=== PATIENT | female | born 1995 | race African-American/Black ===

== ENCOUNTER 2016-11-05 11:47 | Emergency (ER) | payer MEDICAID ==
[2016-11-05] MEDS ORDERED: ONDANSETRON 4 MG TAB.RAPDIS PO ONE (12:10)
[2016-11-05] MEDS ORDERED: HYDROCODONE/ACETAMINOPHEN 5-325 MG TABLET PO ONE (12:10)
--- NOTE | 2016-11-05 12:12 | ER Document Report ---
ED Medical Screen (RME) - General Chief Complaint: Abdominal Pain Stated Complaint: ABDOMINAL PAIN Notes: 21-year-old female patient with severe abdominal pain and cramping to her lower abdomen. She reports about a two-year history of symptoms suggestive of irritable bowel syndrome. She has been put on dicyclomine without benefit. She started her period 5 days ago. She reports the symptoms returned yesterday afternoon and has been getting worse. She does feel some nausea but no vomiting or diarrhea. I have greeted and performed a rapid initial assessment of this patient. A comprehensive ED assessment and evaluation of the patient, analysis of test results and completion of the medical decision making process will be conducted by additional ED providers. TRAVEL OUTSIDE OF THE [place] IN LAST 30 DAYS: No - Related Data Allergies/Adverse Reactions: Penicillins Allergy (Mild, Verified 11/05/16 11:49) Home Medications: Current Home Medications Dicyclomine HCl 20 mg PO BID PRN 11/05/16 [History] Norgestimate-Ethinyl Estradiol [Sprintec 28 Day Tablet] 1 tab PO DAILY 11/05/16 [History] Past Medical History Neurological Medical History: Reports: Hx Migraine Renal/ Medical History: Denies: Hx Peritoneal Dialysis - Immunizations Hx Diphtheria, Pertussis, Tetanus Vaccination: Yes Physical Exam - Vital signs Vitals: Temp Pulse Resp BP Pulse Ox 97.7 F 63 14 132/78 H 98 11/05/16 11:50 11/05/16 11:50 11/05/16 11:50 11/05/16 11:50 11/05/16 11:50 Course - Vital Signs Vital signs: Temp Pulse Resp BP Pulse Ox 97.7 F 63 14 132/78 H 98 11/05/16 11:50 11/05/16 11:50 11/05/16 11:50 11/05/16 11:50 11/05/16 11:50
[2016-11-05] MEDS ORDERED: NORMAL SALINE 1000 ML 1,000 ML IV ONE ×2 (12:23)
[2016-11-05] MEDS ORDERED: ONDANSETRON HCL INJ/PF 4 MG/2 ML SDV IV ONE (12:24)
--- NOTE | 2016-11-05 12:31 | ER Document Report ---
ED GI/ - General Chief Complaint: Abdominal Pain Stated Complaint: ABDOMINAL PAIN Time seen by provider: 12:24 Mode of Arrival: Ambulatory Information source: Patient Notes: 21-year-old female presents to ED for right upper quadrant abdominal pain. She says she has had this pain off and on for 2 years ever since about a month after her son was born. She states she's been to doctors and nobody is ever figured out what was going on with her pain started again yesterday and it is worse than it has been in the past. Last menstrual period was 11/01/2016 TRAVEL OUTSIDE OF THE [place] IN LAST 30 DAYS: No - HPI Patient complains to provider of: Abdominal pain - Right upper quadrant Onset: Other - Off and on for 2 years worse starting yesterday Timing/Duration: Intermittent Quality of pain: Sharp Severity at maximum: Moderate Severity in ED: Moderate Pain Level: 4 Location: RUQ Vaginal bleeding (Compared to normal period): None LMP: 11/01/16 Associated symptoms: Nausea Exacerbated by: Denies Relieved by: Denies Similar symptoms previously: Yes Recently seen / treated by doctor: No - Related Data Allergies/Adverse Reactions: Penicillins Allergy (Mild, Verified 11/05/16 11:49) Home Medications: Current Home Medications Dicyclomine HCl 20 mg PO BID PRN 11/05/16 [History] Norgestimate-Ethinyl Estradiol [Sprintec 28 Day Tablet] 1 tab PO DAILY 11/05/16 [History] Past Medical History - General Information source: Patient - Social History Smoking Status: Never Smoker Cigarette use (# per day): No Chew tobacco use (# tins/day): No Smoking Education Provided: No Frequency of alcohol use: None Drug Abuse: None Occupation: sales Lives with: Parents Family History: DM, Hypertension Patient has suicidal ideation: No Patient has homicidal ideation: No - Past Medical History Cardiac Medical History: Reports: None Pulmonary Medical History: Reports: None EENT Medical History: Reports: None Neurological Medical History: Reports: Hx Migraine Endocrine Medical History: Reports: None Renal/ Medical History: Reports: None Malignancy Medical History: Reports: None GI Medical History: Reports: None Musculoskeltal Medical History: Reports None Skin Medical History: Reports None Psychiatric Medical History: Reports: None Traumatic Medical History: Reports: None Infectious Medical History: Reports: None Surgical Hx: Negative Past Surgical History: Reports: None - Immunizations Hx Diphtheria, Pertussis, Tetanus Vaccination: Yes Review of Systems - Review of Systems Constitutional: No symptoms reported EENT: No symptoms reported Cardiovascular: No symptoms reported Respiratory: No symptoms reported Gastrointestinal: Abdominal pain, Nausea Genitourinary: No symptoms reported Female Genitourinary: No symptoms reported Musculoskeletal: No symptoms reported Skin: No symptoms reported Hematologic/Lymphatic: No symptoms reported Neurological/Psychological: No symptoms reported Physical Exam - Vital signs Vitals: Temp Pulse Resp BP Pulse Ox 97.7 F 63 14 132/78 H 98 11/05/16 11:50 11/05/16 11:50 11/05/16 11:50 11/05/16 11:50 11/05/16 11:50 Interpretation: Normal - General General appearance: Appears well, Alert - HEENT Head: Normocephalic, Atraumatic Eyes: Normal Pupils: PERRL - Respiratory Respiratory status: No respiratory distress Chest status: Nontender Breath sounds: Normal Chest palpation: Normal - Cardiovascular Rhythm: Regular Heart sounds: Normal auscultation Murmur: No - Abdominal Inspection: Normal Distension: No distension Bowel sounds: Normal Tenderness: Tender - Right upper quadrant Organomegaly: No organomegaly - Back Back: Normal, Nontender - Extremities General upper extremity: Normal inspection, Nontender, Normal color, Normal ROM , Normal temperature General lower extremity: Normal inspection, Nontender, Normal color, Normal ROM , Normal temperature, Normal weight bearing. No: Mary's sign - Neurological Neuro grossly intact: Yes Cognition: Normal Orientation: AAOx4 Farhan Coma Scale Eye Opening: Spontaneous Farhan Coma Scale Verbal: Oriented Farhan Coma Scale Motor: Obeys Commands Farhan Coma Scale Total: 15 Speech: Normal Motor strength normal: LUE, RUE, LLE, RLE Sensory: Normal - Psychological Associated symptoms: Normal affect, Normal mood - Skin Skin Temperature: Warm Skin Moisture: Dry Skin Color: Normal Course - Re-evaluation Re-evalutation: 11/05/16 18:[address] Mcgovern requested an order an ultrasound of the abdomen this was completed and negative. Patient had started complaining that the pain in her right upper abdomen increased with urination so a CT Limited stone survey was ordered and this was also negative. Labs were negative. These results were all discussed with the patient and written reports given to the patient. Patient instructed to please follow-up with Dr. Hardy by telephone on Tuesday and schedule a follow-up visit. - Vital Signs Vital signs: Temp Pulse Resp BP Pulse Ox 97.7 F 63 14 132/78 H 98 11/05/16 11:50 11/05/16 11:50 11/05/16 11:50 11/05/16 11:50 11/05/16 11:50 - Laboratory Result Diagrams: 11/05/16 12:30 11/05/16 14:08 Laboratory results interpreted by me: 11/05/16 11/05/16 12:30 13:15 MCH 26.8 L RDW 14.3 H Urine Blood LARGE H - Diagnostic Test Radiology reviewed: Image reviewed, Reports reviewed Discharge - Discharge Clinical Impression: Abdominal pain, right upper quadrant Condition: Stable Disposition: HOME, SELF-CARE Instructions: Evaluation of Upper Abdominal Pain ([facility]) Additional Instructions: ABDOMINAL PAIN: There are many causes of abdominal pain. Pain can mean a serious problem requiring surgery (such as appendicitis). It can also be an innocent problem that goes away on its own (such as a viral infection). Often, time must pass to determine the cause of pain. The physician does not feel that hospitalization is necessary, at present. Things may change within the next 24 hours. Call the doctor or come back for re- examination if any problems occur, such as: (1) Pain that becomes more severe, steady, or becomes concentrated in one specific area. Also, pain that is more severe with movement or coughing. (2) Vomiting that persists or becomes more frequent. (3) Blood in the vomitus, urine, or bowel movements. Blood in the stool may have a tarry or black appearance. (4) Shaking chills or fever greater than 100 degrees F. (5) The abdomen becomes more distended or swollen. (6) Bowel movements cease. (7) Failure to improve as expected. NORMAL EXAM AND WORKUP: At this time, your examination and workup show no significant abnormality. No significant abnormal physical findings are noted. All laboratory, EKG, and imaging (x-ray, CT scans, ultrasound) studies that were ordered show no significant abnormality. Although your examination and all studies that were ordered showed no significant abnormal finding, there are no examinations and no studies that are 100% accurate. There is always the possibility that some abnormality could exist and not be detected with physical examination or within the limits and capabilities of laboratory and other studies. You should return or follow up as you were instructed on your visit today for further evaluation if your symptoms do not resolve. PAIN MEDICATION INJECTION: You have received an injection of a pain medication. You should experience significant pain relief within 45 minutes. This drug is a narcotic - - it will impair your judgement, slow your reaction time and make you sleepy ( as well as relieve your pain). Narcotics also can cause nausea. You should not drive, work with machinery, or perform any task requiring mental alertness until all effects of the medication are gone -- six to eight hours. Do not take any alcohol, or sedatives, and do not take any other medication without checking with your physician. ANTINAUSEA MEDICATION: You have been given a medication to suppress nausea and vomiting. This type of medication can be given as a shot, pill, or suppository. It will usually last for many hours. Pills and shots usually last six to eight hours, suppositories last about 12 hours. For the typical illness, only one or two doses of the medication may be necessary. Mild lightheadedness may occur. This type of medicine can cause drowsiness. Do not drive or operate dangerous machinery while under its influence. Do not mix with alcohol. See your doctor at once if you have muscle spasms or tightness, or uncontrollable motions (particularly of the neck, mouth, or jaw). Persistent vomiting or severe lightheadedness should also be evaluated by the physician. FOLLOW-UP CARE: Please call Dr. Hardy on Tuesday and schedule a follow-up appointment. If you have been referred to a physician for follow-up care, call the physician s office for an appointment as you were instructed or within the next two days. If you experience worsening or a significant change in your symptoms, notify the physician immediately or return to the Emergency Department at any time for re-evaluation. Please complete the patient's satisfaction survey if you get one and return. If you do not receive a survey you can go to [facility] website [email or web address] and place your comments about your very good care. Thank you very much. It was a pleasure be in your medical provider today. Forms: Elevated Blood Pressure, Return to Work Referrals: YANNA HARDY MD [ACTIVE STAFF] - 11/08/16
[2016-11-05 13:01] LABS: ABSOLUTE EOSINOPHILS # (AUTO) 0.3 10^3/uL (0.0-0.6); ABSOLUTE LYMPHOCYTES (AUTO) 1.1 10^3/uL (0.5-4.7); ABSOLUTE MONOCYTES (AUTO) 0.6 10^3/uL (0.1-1.4); ABSOLUTE NEUT (AUTO) 4.2 10^3/uL (1.7-8.2); BASOPHILS % (AUTO) 0.2 % (0-2); EOSINOPHILS % (AUTO) 4.1 % (0-6); HEMOGLOBIN 13.6 g/dL (12.0-15.5); HGB HCT DIFFERENCE -0.2; LYMPHOCYTES % (AUTO) 18.1 % (13-45); MEAN CORPUSCULAR HEMOGLOBIN 26.8 pg (27.0-33.4); MEAN CORPUSCULAR HGB CONC 33.2 g/dL (32.0-36.0); MEAN CORPUSCULAR VOLUME 81 fl (80-97); MONOCYTES % (AUTO) 9.4 % (3-13); RED BLOOD COUNT 5.09 10^6/uL (3.72-5.28); RED CELL DISTRIBUTION WIDTH 14.3 % (11.5-14.0); SEGMENTED NEUTROPHILS % (AUTO) 68.2 % (42-78); WHITE BLOOD COUNT 6.2 10^3/uL (4.0-10.5)
[2016-11-05 13:33] LABS: APPEARANCE,URINE CLEAR; BILIRUBIN,URINE NEGATIVE (NEGATIVE); GLUCOSE, URINE NEGATIVE (NEGATIVE); KETONES,URINE NEGATIVE (NEGATIVE); LEUKOCYTE ESTERASE,URINE NEGATIVE (NEGATIVE); NITRITE,URINE NEGATIVE (NEGATIVE); PROTEIN,URINE NEGATIVE (NEGATIVE); UROBILINOGEN,URINE NEGATIVE mg/dL (<2.0)
[2016-11-05 14:44] LABS: ALANINE AMINOTRANSFERASE 20 U/L (9-52); ALBUMIN 3.9 g/dL (3.5-5.0); ALKALINE PHOSPHATASE 79 U/L (38-126); ANION GAP 12 (5-19); ASPARTATE AMINO TRANSFERASE 22 U/L (14-36); BILIRUBIN,DIRECT 0.1 mg/dL (0.0-0.4); BILIRUBIN,TOTAL 0.5 mg/dL (0.2-1.3); BLOOD UREA NITROGEN 7 mg/dL (7-20); CALCIUM 9.5 mg/dL (8.4-10.2); CARBON DIOXIDE 26 mmol/L (22-30); CHLORIDE 103 mmol/L (98-107); CREATININE RESULT 0.57 mg/dL (0.52-1.25); GLUCOSE 84 mg/dL (75-110); POTASSIUM 4.5 mmol/L (3.6-5.0); SODIUM 141.2 mmol/L (137-145); TOTAL PROTEIN 7.5 g/dL (6.3-8.2)
[2016-11-05 19:00] VITALS: BP 116/72
== END 2016-11-05 19:00 | disposition home or self-care (01) ==
LOC: ER 11:47
DX: R10.11 Right upper quadrant pain (principal); R11.0 Nausea; Z88.0 Allergy status to penicillin
CPT/HCPCS: 99284; 96361; 96374; 36415; 83690; 84703; 85025; 80053; 81001; 76705; 76380; J2405; J7030

== ENCOUNTER 2017-12-11 10:21 | Emergency (ER) | payer SELFPAY ==
[2017-12-11 10:26] VITALS: BP 132/71
--- NOTE | 2017-12-11 10:31 | ER Document Report ---
HPI - HPI Patient complains to provider of: Sore throat Onset: Other - 2 days Pain Level: 4 Context: 22-year-old female complaining of a sore throat and losing voice for 2 days. She has had a cough for several days and now she is ear pain as well. No fever chills. No chest pain or shortness of breath. Non-smoker. No history of asthma. 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 IN LAST 30 DAYS: No - HEENT HEENT: Normocephalic, Pharyngeal Erythema - Minimal bilateral pillars, Tympanic Membrane Red - Right, Tympanic Membrane Bulging - Right, purulent effusion. negative: Conjuctival Injection - NECK Neck: Supple. negative: Lymphadenopathy-Left, Lymphadenopathy-Right - RESPIRATORY Respiratory: Breath Sounds Normal, No Respiratory Distress - CARDIOVASCULAR Cardiovascular: Regular Rate, Regular Rhythm - NEURO Level of Consciousness: Awake, Alert - DERM Integumentary: No Rash Course - Vital Signs Vital signs: Temp Pulse Resp BP Pulse Ox 98.7 F 84 16 132/71 H 97 12/11/17 10:24 12/11/17 10:24 12/11/17 10:24 12/11/17 10:24 12/11/17 10:24 Discharge - Discharge Clinical Impression: Laryngitis Right otitis media Qualifiers: Otitis media type: suppurative Chronicity: acute Recurrence: not specified as recurrent Spontaneous tympanic membrane rupture: without spontaneous rupture Qualified Code(s): H66.001 - Acute suppurative otitis media without spontaneous rupture of ear drum, right ear Condition: Good Disposition: HOME, SELF-CARE Instructions: Acetaminophen, Azithromycin ([facility]), Use of Xmpo-Per-Juvgsdu Ibuprofen ([facility]), Ibuprofen (General) ([facility]), Laryngitis ([facility]), Otitis Media ([facility]) Additional Instructions: Plenty of fluids Tylenol Motrin azithromycin Return if symptoms worsen Follow-up with Dr. Bonilla for ear recheck this month Prescriptions: Azithromycin [Zithromax] 250 mg PO DAILY #6 tablet Forms: Return to Work Referrals: YANNA HARDY MD [Primary Care Provider] - Follow up in 1 month
== END 2017-12-11 10:42 | disposition home or self-care (01) ==
LOC: ER 10:21
DX: J04.0 Acute laryngitis (principal); J02.9 Acute pharyngitis, unspecified; H66.001 Acute suppurative otitis media without spontaneous rupture of ear drum, right ear; R05 Cough; H92.09 Otalgia, unspecified ear
CPT/HCPCS: 99282

== ENCOUNTER 2018-01-06 07:48 | Emergency (ER) | payer SELFPAY ==
[2018-01-06 07:53] VITALS: BP 118/66
--- NOTE | 2018-01-06 08:20 | ER Document Report ---
ED Eye Complaint - General Mode of Arrival: Ambulatory Information source: Patient TRAVEL OUTSIDE OF THE [place] IN LAST 30 DAYS: No - General Chief Complaint: Eye Problem Stated Complaint: RIGHT EYE PAIN Time Seen by Provider: 01/06/18 08:06 Notes: Patient is a 22-year-old female who presents to the emergency department today with complaints of "possible pink eye". Patient states she has had this shortness for approximately 2 weeks and she thought it was her contacts so she stopped wearing those a week ago. Patient is currently wearing eyeglasses and has for the last week. Patient denies having any foreign body in her eye. Patient denies any pain. (ENRIQUE DALEY) - Related Data Allergies/Adverse Reactions: Penicillins Allergy (Mild, Verified 11/05/16 11:49) shellfish derived Allergy (Verified 12/11/17 10:22) Past Medical History - General Information source: Patient - Social History Smoking Status: Never Smoker Cigarette use (# per day): No Frequency of alcohol use: None Drug Abuse: None Lives with: Family Family History: Reviewed & Not Pertinent, DM, Hypertension Neurological Medical History: Reports: Hx Migraine Surgical Hx: Negative - Immunizations Hx Diphtheria, Pertussis, Tetanus Vaccination: Yes Review of Systems - Review of Systems Constitutional: No symptoms reported EENT: See HPI, Eye pain - right Cardiovascular: No symptoms reported Respiratory: No symptoms reported Gastrointestinal: No symptoms reported Genitourinary: No symptoms reported Female Genitourinary: No symptoms reported Musculoskeletal: No symptoms reported Skin: No symptoms reported Hematologic/Lymphatic: No symptoms reported Neurological/Psychological: No symptoms reported -: Yes All other systems reviewed and negative Physical Exam - Vital signs Vitals: Temp Pulse Resp BP Pulse Ox 98.7 F 82 18 118/66 100 01/06/18 07:52 01/06/18 07:52 01/06/18 07:52 01/06/18 07:52 01/06/18 07:52 - Notes Notes: Physical Exam: General: Alert, appears well. HEENT: Normocephalic. Atraumatic. PERRLA. Extraocular movements intact. Right conjunctiva is injected, with perilimbal sparing. Oropharynx clear. Neck: Supple. Respiratory: No respiratory distress. Abdominal: Normal Inspection. No distension. Extremities: Moves all four extremities. Neurological: Normal cognition. AAOx4. Normal speech. Psychological: Normal affect. Normal Mood. Skin: Warm. Dry. Normal color. (ENRIQUE DALEY) Course - Re-evaluation Re-evalutation: 01/06/18 08:23 Patient symptoms suggestive with conjunctivitis. She has been having discharge worse in the morning but denies any eye pain or vision problems. She denies any foreign bodies. She has not worn her contacts in 1 week. Will provide fluoroquinolone drops and reevaluation within the next 3-5 days if symptoms are not improving (LONG,LOUISE H) - Vital Signs Vital signs: Temp Pulse Resp BP Pulse Ox 98.7 F 82 18 118/66 100 01/06/18 07:52 01/06/18 07:52 01/06/18 07:52 01/06/18 07:52 01/06/18 07:52 Discharge - Discharge Clinical Impression: Conjunctivitis Qualifiers: Conjunctivitis type: acute Acute conjunctivitis type: unspecified Laterality: right Qualified Code(s): H10.31 - Unspecified acute conjunctivitis, right eye Condition: Good Disposition: HOME, SELF-CARE Instructions: Conjunctivitis ([facility]) Additional Instructions: 1-2 drops every 2 hours while awake for 2 days then 1-2 drops every 4 hours for 6 days Forms: Return to Work Referrals: YANNA HARDY MD [Primary Care Provider] - Follow up in 3-5 days (For re- evaluation if symptoms are not improving) Scribe Documentation - Scribe Written by Scribe:: Tammy Rodriguez, 01/06/2018 1233 acting as scribe for :: Jose Enrique
[2018-01-06] MEDS ORDERED: CIPROFLOXACIN HCL 0.3% OPH SOLN 2.5 ML OD ONE (08:29)
== END 2018-01-06 08:43 | disposition home or self-care (01) ==
LOC: ER 07:48
DX: H10.31 Unspecified acute conjunctivitis, right eye (principal); H57.11 Ocular pain, right eye; Z88.0 Allergy status to penicillin; Z91.013 Allergy to seafood
CPT/HCPCS: 99283; J3490

== ENCOUNTER 2018-01-19 10:17 | Emergency (ER) | payer SELFPAY ==
[2018-01-19] MEDS ORDERED: IBUPROFEN 800 MG TABLET PO ONE (10:54)
--- NOTE | 2018-01-19 10:55 | ER Document Report ---
ED Extremity Problem, Lower - General Chief Complaint: Foot Pain Stated Complaint: FOOT PAIN Time Seen by Provider: 01/19/18 10:53 Mode of Arrival: Ambulatory Information source: Patient Notes: 22-year-old female presents to ED for pain in her right foot and ankle. She states that while horsing around with her son at the [employer] she also had a very sharp pain in the ankle and her ankle gave out. She has then injured her ankle and her foot. There is no redness swelling or bruising to the ankle at this time. Patient is alert and oriented respirations regular and unlabored speaking in full sentences. We will medicate the patient with ibuprofen and send her for an x-ray to ensure there are no bone bony deformities. Patient agrees with this plan. TRAVEL OUTSIDE OF THE [place] IN LAST 30 DAYS: No - HPI Patient complains to provider of: Injury, Pain, Swelling Location: Ankle, Foot Occurred: Yesterday Where: Outdoors, Public place Onset/Duration: Gradual, Persistent, Worse Quality of pain: Sharp, Throbbing Severity: Moderate Pain Level: 4 Context: Twisted - Or rolled Recent injury: Yes Associated symptoms: Painful ambulation Exacerbated by: Hanging down, Movement, Walking Relieved by: Elevation, Ice, Rest - Related Data Allergies/Adverse Reactions: Penicillins Allergy (Mild, Verified 01/19/18 10:31) shellfish derived Allergy (Verified 01/19/18 10:31) Past Medical History - General Information source: Patient - Social History Smoking Status: Never Smoker Cigarette use (# per day): No Chew tobacco use (# tins/day): No Smoking Education Provided: No Frequency of alcohol use: None Drug Abuse: None Occupation: [employer] Lives with: Parents Family History: Reviewed & Not Pertinent, DM, Hypertension Patient has suicidal ideation: No Patient has homicidal ideation: No - Past Medical History Cardiac Medical History: Reports: None Pulmonary Medical History: Reports: None EENT Medical History: Reports: None Neurological Medical History: Reports: Hx Migraine Endocrine Medical History: Reports: None Renal/ Medical History: Reports: None Malignancy Medical History: Reports: None GI Medical History: Reports: None Musculoskeltal Medical History: Reports None Skin Medical History: Reports None Psychiatric Medical History: Reports: None Traumatic Medical History: Reports: None Infectious Medical History: Reports: None Surgical Hx: Negative Past Surgical History: Reports: None - Immunizations Hx Diphtheria, Pertussis, Tetanus Vaccination: Yes Review of Systems - Review of Systems Constitutional: No symptoms reported EENT: No symptoms reported Cardiovascular: No symptoms reported Respiratory: No symptoms reported Gastrointestinal: No symptoms reported Genitourinary: No symptoms reported Female Genitourinary: No symptoms reported Musculoskeletal: Ankle swelling Skin: No symptoms reported Hematologic/Lymphatic: No symptoms reported Neurological/Psychological: No symptoms reported Physical Exam - Vital signs Vitals: Temp Pulse Resp BP Pulse Ox 98.7 F 79 16 121/69 98 01/19/18 10:32 01/19/18 10:32 01/19/18 10:32 01/19/18 10:32 01/19/18 10:32 Interpretation: Normal - General General appearance: Appears well, Alert - HEENT Head: Normocephalic, Atraumatic Eyes: Normal Pupils: PERRL - Respiratory Respiratory status: No respiratory distress Chest status: Nontender Breath sounds: Normal Chest palpation: Normal - Cardiovascular Rhythm: Regular Heart sounds: Normal auscultation Murmur: No - Abdominal Inspection: Normal Distension: No distension Bowel sounds: Normal Tenderness: Nontender Organomegaly: No organomegaly - Back Back: Normal, Nontender - Extremities General upper extremity: Normal inspection, Nontender, Normal color, Normal ROM , Normal temperature General lower extremity: Normal color, Normal temperature. No: Mary's sign Ankle: Tender, Ecchymosis - Due to pain, Limited ROM Foot: Tender, Ecchymosis, Edema, Metatarsal compress. pain, No evidence of FB - Neurological Neuro grossly intact: Yes Cognition: Normal Orientation: AAOx4 [place] Coma Scale Eye Opening: Spontaneous Farhan Coma Scale Verbal: Oriented Farhan Coma Scale Motor: Obeys Commands Farhan Coma Scale Total: 15 Speech: Normal Motor strength normal: LUE, RUE, LLE, RLE Sensory: Normal - Psychological Associated symptoms: Normal affect, Normal mood - Skin Skin Temperature: Warm Skin Moisture: Dry Skin Color: Normal Course - Re-evaluation Re-evalutation: 01/19/18 21:44 X-ray was discussed with patient and written report was given to patient before discharge. Patient was instructed on elevation ice ibuprofen. Patient to follow-up with orthopedics. The patient is nontoxic appearing with stable vitals. They are afebrile. Ankle exam shows no deformities with no obvious ligament instability. There is a normal pulse and sensation distally. There is no redness or signs of infection. X-rays show no acute fracture per the radiologist. Patient will be placed in an Sarmad wrap for comfort. Crutches will be offered and given if requested. Patient will be instructed to follow-up with not better in 1 week, sooner for increasing pain, fever, redness, numbness , tingling, weakness, any further concerns. Patient will be instructed to rest , ice, elevate their ankle. - Vital Signs Vital signs: Temp Pulse Resp BP Pulse Ox 98.1 F 79 16 114/82 99 01/19/18 14:04 01/19/18 14:04 01/19/18 10:32 01/19/18 14:04 01/19/18 14:04 - Diagnostic Test Radiology reviewed: Image reviewed, Reports reviewed Procedures - Immobilization Right Ankle Time completed: 14:00 Immobilizer type: Sarmad wrap, Ankle stirrup, Crutches Performed by: PCT Post-Proc Neuro Vasc Exam: Normal Alignment checked and good: Yes Discharge - Discharge Clinical Impression: Strain of right ankle and foot Qualifiers: Encounter type: initial encounter Qualified Code(s): S96.911A - Strain of unspecified muscle and tendon at ankle and foot level, right foot, initial encounter Condition: Stable Disposition: HOME, SELF-CARE Additional Instructions: SPRAINED ANKLE and foot Your sprained ankle results from stretching or tearing of the ligaments which support the ankle. This usually results from twisting the foot inward and under. The ligaments will require time and protection in order to heal properly. Many ankle sprains are quite disabling, and should be taken seriously. The usual treatment for an ankle sprain is cold packs; protection with tape , splints, or wraps; elevation; and staying off the ankle for at least a day. As the ankle improves, you can walk IF it's not painful to bear weight. Sports are best postponed until healing is complete. More serious sprains usually require strengthening exercises after early healing. Your physician has assessed the seriousness of the ligament injury to your ankle. However, the treatment may change, depending on how your ankle progresses. If further exams were recommended, it is important that you follow through. Call the doctor if your foot becomes numb, painful, or severely swollen. SARMAD WRAP: A compression dressing (sarmad wrap) has been placed. This helps hold the area still. It limits swelling and internal bleeding. The wrap should be comfortably snug -- not tight. You should feel a sense of pressure, but not severe pain under the wrap. Unless the physician tells you otherwise, you can adjust the wrap for comfort. If the wrap causes symptoms suggesting it's too tight -- uncomfortable pressure, swelling or discoloration beyond the wrap, numbness, or severe pain - - you must loosen the wrap. If these symptoms don't resolve promptly, return for re-evaluation. ANKLE STIRRUP SPLINT: You are to use an ankle brace called a stirrup splint. This type of brace allows you to place greater stresses on the ankle without risk of re-injury, and is often used for more severe ankle injuries such as avulsion fractures and ligament ruptures. The splint can be worn over a sock or tape. For proper support, wear the splint with a shoe over it. It's important that the splint fit properly. Adjust the heel tension, if needed. If your splint has air bladders, peel back the bottom of each air bladder, then move the Velcro attachment of the heel strap up or down. Air bladder pressure can be adjusted by pulling up the valve at the top, threading the air tube down into the main bladder, then blowing air into the bladder or squeezing it out. The two sides of the stirrup can be moved forward or back on your ankle by changing the attachment of the main straps. If you are unable to use the ankle comfortably in the splint, return for re -evaluation. USE OF CRUTCHES: The doctor has recommended that you not bear weight at this time. You will need to use crutches. Adjust the crutches so the tops come to about two inches under the armpit while you are standing upright. Use your hands -- not your armpits -- to support your weight. To get into a chair, support yourself with one crutch on the injured side. Hold the chair with the other hand, then lower yourself while putting all your weight on the good leg. Going up stairs is `good leg up, step up, then bring up crutches and bad leg.' Down stairs is `bad leg and crutches down, then bring good leg down.' If you develop numbness or swelling in an arm or hand, you are using the crutches incorrectly. Return if you are having any problems with the crutches. ICE & ELEVATION: Apply ice packs frequently against the painful area. Many different schedules are recommended, such as "20 minutes on, 20 minutes off" or "one hour ice, two hours rest." If you need to work, you may need to go longer between ice treatments. You should plan to have the area ice packed AT LEAST one- fourth of the time. The ice should be applied over the wrap, tape, or splint, or over a layer of cloth -- not directly against the skin. Some ice bags have a built-in cloth and can be put directly on the skin. Your injured part should be elevated as much as possible over the next 48 hours. Try to keep the injury above the level of the heart. Avoid use of the injured area. Elevation and rest will decrease the swelling. USE OF FLIX-XIR-KJFCEHE IBUPROFEN: Ibuprofen (Advil, Nuprin, Medipren, Motrin IB) is a medication for fever and pain control. In addition, it has anti- inflammatory effects which may be beneficial, especially in the treatment of injuries. It's best to take ibuprofen with food. Persons with ulcer disease or allergy to aspirin should notify their physician of this before taking ibuprofen. Ibuprofen can be given every four to six hours, for a total of four doses daily. Age Pain or fever dose Antiinflammatory dose 6-8 yr 200 mg (1 tab) 200 mg (1 tab) 9-11 yr 200 mg (1 tab) 200-400 mg (1-2 tab) 11-14 yr 200-400 mg (1-2 tab) 400 mg (2 tab) 15-adult 400 mg (2 tab) 600 mg (3 tab) FOLLOW-UP CARE: If you have been referred to a physician for follow-up care, call the physician s office for an appointment as you were instructed or within the next two days. If you experience worsening or a significant change in your symptoms, notify the physician immediately or return to the Emergency Department at any time for re-evaluation. Prescriptions: Ibuprofen 600 mg PO Q6HP PRN #20 tablet PRN Reason: Forms: Return to Work Referrals: MOZIE,YANNA, MD [Primary Care Provider] - Follow up as needed RICHARD BAUMANN MD [ACTIVE STAFF] - Follow up as needed
--- NOTE | 2018-01-19 11:51 | RADIOLOGY REPORT (SQ) ---
EXAM DESCRIPTION: ANKLE RIGHT COMPLETE; FOOT RIGHT COMPLETE COMPLETED DATE/TIME: 01/19/2018 11:23 am; 01/19/2018 11:24 am REASON FOR STUDY: pain and injury COMPARISON: None. NUMBER OF VIEWS: Six views. TECHNIQUE: AP, lateral, and oblique radiographic images acquired of the right ankle with AP, lateral oblique images of the right foot. LIMITATIONS: None. FINDINGS: MINERALIZATION: Normal. BONES: No acute fracture or dislocation. No worrisome bone lesions. Minimal calcaneal spurring at t he insertion of the Achilles. JOINTS: No effusions. SOFT TISSUES: No soft tissue swelling. No foreign body. OTHER: No other significant finding. IMPRESSION: No radiographic evidence of acute injury involving the right foot or right ankle. TECHNICAL DOCUMENTATION: JOB ID: [id number] [employer]- All Rights Reserved Reading location - IP/workstation name: [email or web address]
--- NOTE | 2018-01-19 11:51 | RADIOLOGY REPORT (SQ) ---
EXAM DESCRIPTION: ANKLE RIGHT COMPLETE; FOOT RIGHT COMPLETE COMPLETED DATE/TIME: 01/19/2018 11:23 am; 01/19/2018 11:24 am REASON FOR STUDY: pain and injury COMPARISON: None. NUMBER OF VIEWS: Six views. TECHNIQUE: AP, lateral, and oblique radiographic images acquired of the right ankle with AP, lateral oblique images of the right foot. LIMITATIONS: None. FINDINGS: MINERALIZATION: Normal. BONES: No acute fracture or dislocation. No worrisome bone lesions. Minimal calcaneal spurring at t he insertion of the Achilles. JOINTS: No effusions. SOFT TISSUES: No soft tissue swelling. No foreign body. OTHER: No other significant finding. IMPRESSION: No radiographic evidence of acute injury involving the right foot or right ankle. TECHNICAL DOCUMENTATION: JOB ID: [id number] [employer]- All Rights Reserved Reading location - IP/workstation name: [email or web address]
[2018-01-19 14:12] VITALS: BP 114/82
== END 2018-01-19 14:12 | disposition home or self-care (01) ==
LOC: ER 10:17
DX: S96.911A Strain of unspecified muscle and tendon at ankle and foot level, right foot, initial encounter (principal); M79.671 Pain in right foot; M25.571 Pain in right ankle and joints of right foot; M79.89 Other specified soft tissue disorders; X58.XXXA Exposure to other specified factors, initial encounter; Y93.83 Activity, rough housing and horseplay
CPT/HCPCS: 99283; 73610; 73630; L1902

== ENCOUNTER 2018-09-03 13:43 | Emergency (ER) | payer SELFPAY ==
[2018-09-03] MEDS ORDERED: LOPERAMIDE HCL 2 MG CAPSULE PO ONE (15:01)
--- NOTE | 2018-09-03 15:34 | ER Document Report ---
Entered by JACLYN DANIELS SCRIBE 09/03/18 1511 Acting as scribe for:JOSE MARTIN DO ED Medical Screen (RME) - General Chief Complaint: Diarrhea Stated Complaint: FEVER Time Seen by Provider: 09/03/18 14:54 Primary Care Provider: HEALTH,EMPLOYEE [Primary Care Provider] - Follow up as needed Mode of Arrival: Ambulatory Information source: Patient Notes: Patient is a 23 year old female presenting to the emergency department complaining of diarrhea, nausea and dizziness onset 3 days ago. Patient states she has hemorrhoids and her diarrhea is causing pain and rectal bleeding. She states she notices blood on the toilet paper after having a bowel movement. She also states due to the diarrhea she has been feeling weak and dizzy. She me ntions a fever of 101.0 yesterday. She denies any antibiotic use or change in hemorrhoids. She reports working in a [employer]. I have greeted and performed a rapid initial assessment of this patient. A comprehensive ED assessment and evaluation of the patient, analysis of test results and completion of the medical decision making process will be conducted by additional ED providers. GENERAL: Alert, interacts well. No acute distress. HEAD: Normocephalic, Atraumatic. EYES: Pupils equal, round, and reactive to light. EOMI. ENT: Oral mucosa moist, tongue midline. NECK: Full range of motion. Supple. Trachea midline. LUNGS: Clear to auscultation bilaterally, no wheezes, rales, or rhonchi. No respiratory distress. HEART: Regular rate and rhythm. No murmurs, gallops, or rubs. ABDOMEN: Soft, mild RLQ tenderness to palpation, no guarding, rebounding or rigidity. Non-distended. Bowel sounds present in all 4 quadrants. EXTREMITIES: Moves all four extremities spontaneously. PSYCH: Normal affect, normal mood. TRAVEL OUTSIDE OF THE [place] IN LAST 30 DAYS: No - Related Data Allergies/Adverse Reactions: Penicillins Allergy (Mild, Verified 09/03/18 14:54) shellfish derived Allergy (Verified 09/03/18 14:54) Past Medical History Neurological Medical History: Reports: Hx Migraine Renal/ Medical History: Denies: Hx Peritoneal Dialysis - Immunizations Hx Diphtheria, Pertussis, Tetanus Vaccination: Yes Physical Exam - Vital signs Vitals: Temp Pulse Resp BP Pulse Ox 99.0 F 81 16 127/73 H 98 09/03/18 14:00 09/03/18 14:00 09/03/18 14:00 09/03/18 14:00 09/03/18 14:00 Course - Re-evaluation Re-evalutation: 09/03/18 15:33 Given right lower quadrant abdominal pain and fevers recommend sending to [facility] in the emergency department rather than keeping in [facility] for good abdominal exam. - Vital Signs Vital signs: Temp Pulse Resp BP Pulse Ox 99.0 F 81 16 127/73 H 98 09/03/18 14:00 09/03/18 14:00 09/03/18 14:00 09/03/18 14:00 09/03/18 14:00 Doctor's Discharge - Discharge Referrals: HEALTH,EMPLOYEE [Primary Care Provider] - Follow up as needed I personally performed the services described in the documentation, reviewed and edited the documentation which was dictated to the scribe in my presence, and it accurately records my words and actions.
[2018-09-03 16:45] LABS: ABSOLUTE EOSINOPHILS # (AUTO) 0.1 10^3/uL (0.0-0.6); ABSOLUTE LYMPHOCYTES (AUTO) 1.3 10^3/uL (0.5-4.7); ABSOLUTE MONOCYTES (AUTO) 0.7 10^3/uL (0.1-1.4); ABSOLUTE NEUT (AUTO) 5.5 10^3/uL (1.7-8.2); BASOPHILS % (AUTO) 0.2 % (0-2); EOSINOPHILS % (AUTO) 1.8 % (0-6); HEMATOCRIT 38.9 % (36.0-47.0); HEMOGLOBIN 13.2 g/dL (12.0-15.5); LYMPHOCYTES % (AUTO) 16.4 % (13-45); MEAN CORPUSCULAR HEMOGLOBIN 27.1 pg (27.0-33.4); MEAN CORPUSCULAR HGB CONC 33.9 g/dL (32.0-36.0); MEAN CORPUSCULAR VOLUME 80 fl (80-97); MONOCYTES % (AUTO) 9.4 % (3-13); PLATELET COUNT 269 10^3/uL (150-450); RED BLOOD COUNT 4.87 10^6/uL (3.72-5.28); RED CELL DISTRIBUTION WIDTH 14.7 % (11.5-14.0); SEGMENTED NEUTROPHILS % (AUTO) 72.2 % (42-78); TOTAL CELLS COUNTED % (AUTO) 100 %; WHITE BLOOD COUNT 7.6 10^3/uL (4.0-10.5)
[2018-09-03 17:01] LABS: ALANINE AMINOTRANSFERASE 12 U/L (9-52); ALBUMIN 4.1 g/dL (3.5-5.0); ALKALINE PHOSPHATASE 88 U/L (38-126); ANION GAP 10 (5-19); ASPARTATE AMINO TRANSFERASE 23 U/L (14-36); BILIRUBIN,DIRECT 0.2 mg/dL (0.0-0.4); BILIRUBIN,TOTAL 0.2 mg/dL (0.2-1.3); BLOOD UREA NITROGEN 7 mg/dL (7-20); CALCIUM 9.5 mg/dL (8.4-10.2); CARBON DIOXIDE 27 mmol/L (22-30); CHLORIDE 104 mmol/L (98-107); GLUCOSE 82 mg/dL (75-110); POTASSIUM 4.2 mmol/L (3.6-5.0); SODIUM 141.2 mmol/L (137-145); TOTAL PROTEIN 7.5 g/dL (6.3-8.2)
[2018-09-03 17:02] LABS: APPEARANCE,URINE CLOUDY; BILIRUBIN,URINE NEGATIVE (NEGATIVE); COLOR,URINE YELLOW; GLUCOSE, URINE NEGATIVE (NEGATIVE); KETONES,URINE NEGATIVE (NEGATIVE); LEUKOCYTE ESTERASE,URINE TRACE (NEGATIVE); NITRITE,URINE NEGATIVE (NEGATIVE); PROTEIN,URINE NEGATIVE (NEGATIVE); URINE SPECIFIC GRAVITY 1.019; UROBILINOGEN,URINE NEGATIVE mg/dL (<2.0)
[2018-09-03 17:07] LABS: A TYPE INFLUENZA AG NEGATIVE (NEGATIVE); B INFLUENZA AG NEGATIVE (NEGATIVE)
[2018-09-03] MEDS ORDERED: MORPHINE SULFATE 10 MG/ML INJ IV ONE (17:14)
[2018-09-03 18:14] LABS: T.VAGINALIS (WET MOUNT) NO TRICHOMONAS SEEN; YEAST (WET MOUNT) NO YEAST SEEN
[2018-09-03 18:15] LABS: BACTERIA (WET MOUNT) 3+ BACTERIA SEEN; EPITHELIALS (WET MOUNT) 3+ EPITHELIALS SEEN; RBCS (WET MOUNT) FEW RBCS SEEN; WBCS (WET MOUNT) 2+ WBCS SEEN
--- NOTE | 2018-09-03 18:19 | ER Document Report ---
ED General - General Chief Complaint: Diarrhea Stated Complaint: FEVER Time Seen by Provider: 09/03/18 14:54 Primary Care Provider: HEALTH,EMPLOYEE [ACTIVE STAFF] - Follow up as needed Mode of Arrival: Ambulatory Notes: Patient is a 23-year old female who presents to the emergency department with a chief complaint of diarrhea, nausea, and dizziness that started 3 days ago. Patient states that she has been feeling weak and dizzy. She does have some abdominal pain in her right lower quadrant. Walking does aggravate the pain. She has not tried anything to help her pain. She has a history of hemorrhoids, and states that she noticed some blood on the toilet paper after she wiped. Rep orts fever on and off the past day. She has not seen her primary care provider in regards to this visit. She denies any abdominal surgeries. Her last menstrual cycle was 2 weeks ago. TRAVEL OUTSIDE OF THE [place] IN LAST 30 DAYS: No - Related Data Allergies/Adverse Reactions: Penicillins Allergy (Mild, Verified 09/03/18 14:54) shellfish derived Allergy (Verified 09/03/18 14:54) Past Medical History - General Information source: Patient - Social History Smoking Status: Never Smoker Frequency of alcohol use: None Drug Abuse: None Family History: Reviewed & Not Pertinent, DM, Hypertension Patient has suicidal ideation: No Patient has homicidal ideation: No Neurological Medical History: Reports: Hx Migraine Renal/ Medical History: Denies: Hx Peritoneal Dialysis - Immunizations Hx Diphtheria, Pertussis, Tetanus Vaccination: Yes Review of Systems - Review of Systems Notes: REVIEW OF SYSTEMS: CONSTITUTIONAL : Denies recent illness. Denies recent unintentional weight loss. Denies fever, chills, or sweats. EENT: Denies eye, ear, throat, or mouth pain, discharge, or symptoms. Denies nasal or sinus congestion. CARDIOVASCULAR: Denies chest pain. RESPIRATORY: Denies shortness of breath, cough, congestion, difficulty shavonne athing, or wheezing. GASTROINTESTINAL: See HPI. last BM: Yesterday GENITOURINARY: Denies difficulty urinating, burning, blood in urine, urgency or frequency. FEMALE GENITOURINARY: Denies abnormal or irregular periods. Denies abnormal bleeding. LMP: 2 weeks ago MUSCULOSKELETAL: Denies neck and back pain. Denies joint pain or swelling. SKIN: Denies rash, itchiness, or lesions HEMATOLOGIC : Denies easy bruising or bleeding. LYMPHATIC: Denies swollen, painful, enlarged glands. NEUROLOGICAL: Denies no numbness or tingling denies weakness. Denies headache. Denies altered mental status. Denies alteration in speech. PSYCHIATRIC: Denies stress, anxiety, alteration in sleep patterns, or depression. All other systems reviewed and negative. Physical Exam - Vital signs Vitals: Temp Pulse Resp BP Pulse Ox 99.0 F 81 16 127/73 H 98 09/03/18 14:00 09/03/18 14:00 09/03/18 14:00 09/03/18 14:00 09/03/18 14:00 - Notes Notes: PHYSICAL EXAMINATION: GENERAL: Appears well, healthy, well-nourished, no acute distress. HEAD: Normocephalic, atraumatic. EYES: PERRL, conjunctiva normal, all extraocular movements intact, sclera nonicteric ENT: Moist mucous membranes. NECK: Supple, no noticeable swelling, redness, rash. Normal range of motion. LUNGS: Equal breath sounds bilaterally and clear to auscultation. No wheezes rales or rhonchi. CARDIOVASCULAR: S1-S2, regular rate, regular rhythm. Radial pulses 2+, normal. ABDOMEN: Normoactive bowel sounds. Soft, tender right lower quadrant and mid lower abdomen. EXTREMITIES: Normal strength and range of motion, no pitting or edema. No cyanosis. NEUROLOGICAL: Moves all extremities upon command. Strength 5/5 in all extremities. PSYCH: Normal mood, normal affect. SKIN: Warm, dry. No rash, lesions, ulcerations noted. Normal skin turgor. GAME PROGRAMMER: Milky white, yellowish discharge noted at cervix. Cervical motion tenderness noted. Course - Re-evaluation Re-evalutation: 09/03/18 17:57 A pelvic exam was done with OSIEL Estrada at bedside. She does have cervical motion tenderness and tenderness to her right ovary on palpation.Her CBC is unremarkable. Chemistries are normal. HCG is negative. She does have a slight amount of leukocytes in her urine, this makes me suspicious of possibly having a pelvic infection. Differential diagnosis includes appendicitis, pelvic inflammatory disease, ovarian torsion, ovarian cyst, and other pelvic etiology. 09/03/18 19:00 Patient has 3+ bacteria noted on her wet mount. She will be started on Flagyl. Awaiting ultrasound results. 09/03/18 19:17 Patient's ultrasound is negative for any acute findings in her pelvic region. Unfortunately the ultrasound did not visualize her appendix. I reexamined the patient and pressed on the area of where her appendix would be, but she had less pain there than in her mid lower abdomen. I am more suspicious of the patient having pelvic inflammatory disease. She will be started on doxycycline and Flagyl. She will also be empirically treated for gonorrhea and chlamydia with azithromycin and ceftriaxone. She is in agreement with this plan. Verbal discharge instructions were given to the patient. They verbalized understanding. They are stable for discharge. - Vital Signs Vital signs: Temp Pulse Resp BP Pulse Ox 99.0 F 87 16 122/70 98 09/03/18 14:00 09/03/18 20:11 09/03/18 20:11 09/03/18 20:11 09/03/18 20:11 - Laboratory Result Diagrams: 09/03/18 16:26 09/03/18 16:26 Laboratory results interpreted by me: 09/03/18 09/03/18 16:26 16:26 RDW 14.7 H Ur Leukocyte Esterase TRACE H Discharge - Discharge Clinical Impression: Pelvic inflammatory disease Abdominal pain Qualifiers: Abdominal location: lower abdomen, unspecified Qualified Code(s): R10.30 - Lower abdominal pain, unspecified Condition: Stable Disposition: HOME, SELF-CARE Additional Instructions: You were seen today in the emergency department for diarrhea, body weakness, and fever. You have been diagnosed with pelvic inflammatory disease. You have been given antibiotics. Please make sure you take all your antibiotics. Please do not drink alcohol while on your antibiotics. You have also been treated for gonorrhea and chlamydia here in the emergency department. You will be called if your results are positive. You can take Tylenol and Motrin for your fever. Also, make sure you stay well-hydrated. You have been given Zofran, medication for nausea. You may take 1 tablet every 4-6 hours as needed for nausea or vomiting. If you become lethargic, pass out, have a fever while on Motrin and Tylenol, have worsening symptoms, or have any symptoms that are worrisome to you, please return to the emergency department. Prescriptions: Doxycycline Hyclate 100 mg PO BID #28 capsule Metronidazole [Flagyl 500 mg Tablet] 500 mg PO BID #28 tablet Forms: Parent Work Note Referrals: HEALTH,EMPLOYEE [ACTIVE STAFF] - Follow up as needed
--- NOTE | 2018-09-03 18:55 | RADIOLOGY REPORT (SQ) ---
EXAM DESCRIPTION: U/S NON OB PEL TV W/DOPPLER COMPLETED DATE/TIME: 09/03/2018 6:37 pm REASON FOR STUDY: lower abdominal pain COMPARISON: None. TECHNIQUE: Dynamic and static grayscale images acquired of the pelvis via transvaginal approach and recorded on PACS. Additional selected color Doppler and spectral images recorded. LIMITATIONS: None. FINDINGS: UTERUS: Contour normal. No mass. ENDOMETRIAL STRIPE: No focal or generalized thickening. No masses. CERVIX: Small nabothian cysts. RIGHT OVARY AND DOPPLER: Normal size. No worrisome masses. Normal arterial vascular flow without evid ence for torsion. LEFT OVARY AND DOPPLER: Normal size. No worrisome masses. Normal arterial vascular flow without evide nce for torsion. FREE FLUID: Small amount of free fluid in the cul-de-sac. OTHER: No other significant finding. MEASUREMENTS: UTERUS: 6.8 x 4.8 x 3.6 cm ENDOMETRIAL STRIPE: 2 mm RIGHT OVARY: 2.7 x 3.3 x 2.0 cm LEFT OVARY: 3.3 x 2.6 x 4.4 cm IMPRESSION: No evidence for torsion. TECHNICAL DOCUMENTATION: JOB ID: [id number] [place]-72 2010 [employer]- All Rights Reserved Rev-12/02 Reading location - IP/workstation name: [employer]
--- NOTE | 2018-09-03 19:01 | RADIOLOGY REPORT (SQ) ---
EXAM DESCRIPTION: U/S ABDOMEN LTD W/DOPPLER COMPLETED DATE/TIME: 09/03/2018 6:37 pm REASON FOR STUDY: RLQ; Eval appy? COMPARISON: None. TECHNIQUE: Static and real time jean scale imaging performed of the right lower quadrant with additi onal compression maneuvers. LIMITATIONS: None. FINDINGS: APPENDIX: Not visualized. BOWEL: Active peristalsis with fluid in the bowel. COMPRESSION MANEUVERS: No rebound pain with compression. OTHER: No other significant finding. IMPRESSION: APPENDIX NOT IDENTIFIED. ACTIVE PERISTALSIS. TECHNICAL DOCUMENTATION: JOB ID: [id number] [place]-72 2010 [email or web address]- All Rights Reserved Reading location - IP/workstation name: [employer]
[2018-09-03] MEDS ORDERED: LIDOCAINE 1% INJ-PF (10 MG/ML) 30 ML SDV INJ ONE (19:15)
[2018-09-03] MEDS ORDERED: CEFTRIAXONE INJ 250 MG VIAL IM ONE (19:15)
[2018-09-03] MEDS ORDERED: AZITHROMYCIN 250 MG TABLET PO ONE (19:15)
[2018-09-03] MEDS ORDERED: METRONIDAZOLE 500 MG TABLET PO ONE (19:16)
[2018-09-03] MEDS ORDERED: DOXYCYCLINE HYCLATE 100 MG TABLET PO ONE (19:16)
[2018-09-03] MEDS ORDERED: ONDANSETRON ODT 4 MG TAB (6 TAB/ER DISP) PO PRN (19:25)
[2018-09-03 19:45] LABS: CHLAM PCR NOT DETECTED (NOT DETECT); GON PCR NOT DETECTED (NOT DETECT)
[2018-09-03 20:12] VITALS: BP 122/70
== END 2018-09-03 20:12 | disposition home or self-care (01) ==
LOC: ER 13:43
DX: N73.9 Female pelvic inflammatory disease, unspecified (principal); R10.30 Lower abdominal pain, unspecified; R19.7 Diarrhea, unspecified; R50.9 Fever, unspecified; R53.1 Weakness; R42 Dizziness and giddiness
CPT/HCPCS: 99284; 96372; 96374; 36415; 87210; 84703; 85025; 80053; 81001; 87491; 87591; 87804; 76705; 76830; 93976; J3490; J2270; J0696

== ENCOUNTER 2018-10-12 10:54 | Emergency (ER) | payer SELFPAY ==
[2018-10-12 11:05] VITALS: BP 131/74
--- NOTE | 2018-10-12 11:37 | ER Document Report ---
ED General - General Chief Complaint: Sore Throat Stated Complaint: COUGH, SORE THROAT Time Seen by Provider: 10/12/18 11:20 Primary Care Provider: YOLANDA MACIAS MD [ACTIVE STAFF] - Follow up in 3-5 days Notes: Patient is a 23-year-old female with history of seasonal allergies and sinusitis that presents to the emergency department for chief complaint of sinus congestion and cough. Patient states she is been taking her Zyrtec without much relief of her symptoms over the past 2 weeks, she has had congestion and now developing some cough, she is had a mild sore throat, but admits to having some postnasal drip as well. She has not tried any other uezy-zfu-nleduhv medications so far. Denies any fevers, chills, night sweats, headache, shortness of breath or difficulty breathing. Denies having any chest pain, nausea or vomiting. Past Medical History: Seasonal allergies Past Surgical History: Denies surgical history Social History: Denies tobacco, alcohol or drug use. Family History: Reviewed and noncontributory for presenting illness Allergies: Reviewed, see documented allergy list. REVIEW OF SYSTEMS: Other than noted above, the 12 point review of systems was reviewed with the patient and were negative, all pertinent findings are included in the HPI. PHYSICAL EXAMINATION: Vital signs reviewed, nursing noted reviewed. GENERAL: Well-appearing, well-nourished and in no acute distress. HEAD: Atraumatic, normocephalic. EYES: Eyes appear normal, sclera anicteric, conjunctiva are normal. ENT: Moist mucous membranes. Nares are patent, mild bilateral injection, mild posterior pharynx erythema, without tonsillar edema or erythema. No exudates noted. NECK: Normal range of motion, supple without lymphadenopathy LUNGS: Breath sounds clear to auscultation bilaterally and equal. No wheezes rales or rhonchi. HEART: Regular rate and rhythm without murmurs EXTREMITIES: Nontender, good range of motion, no pitting or edema. NEUROLOGICAL: No focal neurological deficits. Moves all extremities spontaneously Motor and sensory grossly intact on exam. PSYCH: Normal mood, normal affect. SKIN: Warm, Dry, normal turgor, no rashes or lesions noted on exposed skin TRAVEL OUTSIDE OF THE [place] IN LAST 30 DAYS: No - Related Data Allergies/Adverse Reactions: Penicillins Allergy (Mild, Verified 10/12/18 10:57) shellfish derived Allergy (Verified 10/12/18 10:57) Past Medical History - Social History Smoking Status: Never Smoker Family History: Reviewed & Not Pertinent, DM, Hypertension Patient has suicidal ideation: No Patient has homicidal ideation: No Neurological Medical History: Reports: Hx Migraine Renal/ Medical History: Denies: Hx Peritoneal Dialysis - Immunizations Hx Diphtheria, Pertussis, Tetanus Vaccination: Yes Physical Exam - Vital signs Vitals: Temp Pulse Resp BP Pulse Ox 98.5 F 71 16 131/74 H 98 10/12/18 11:04 10/12/18 11:04 10/12/18 11:04 10/12/18 11:04 10/12/18 11:04 Course - Re-evaluation Re-evalutation: Patient seen and examined vital signs reviewed. Patient was evaluated and treated as appropriate for the patient's presenting symptoms and complaint, with consideration of any critical or life threatening conditions that may be associated with their obtained history and exam as noted above. Evaluation was most consistent with sinus congestion, will give the patient inhaled nasal steroid, as well as a short course of prednisone to help with her overall symptoms and sinus congestion as she is not doing much better on antihistamine therapy Plan of care was discussed with the patient at this point, after careful consideration I feel that that patient can be discharged from the emergency department, the patient was educated treatments and reasons to return to the emergency department based on their presumed diagnosis as noted above, they were advised to followup with a primary care physician in 2-3 days. Patient was agreeable to plan of care. *Note is created using voice recognition software and may contain spelling, syntax or grammatical errors. - Vital Signs Vital signs: Temp Pulse Resp BP Pulse Ox 98.5 F 71 16 131/74 H 98 10/12/18 11:04 10/12/18 11:04 10/12/18 11:04 10/12/18 11:04 10/12/18 11:04 Discharge - Discharge Clinical Impression: Sinus congestion Condition: Stable Disposition: HOME, SELF-CARE Instructions: Sinusitis ([facility]) Prescriptions: Fluticasone Propionate [Flonase Nasal [place] 50 Mcg/[place] 16 gm] 1 spray NASL Q12 #1 inhaler RX: Prednisone [Deltasone 10 mg Tablet] 40 mg PO DAILY #20 tablet Forms: Return to Work Referrals: YOLANDA MACIAS MD [ACTIVE STAFF] - Follow up in 3-5 days
== END 2018-10-12 11:39 | disposition home or self-care (01) ==
LOC: ER 10:54
DX: R09.81 Nasal congestion (principal); J02.9 Acute pharyngitis, unspecified; R05 Cough; R09.82 Postnasal drip
CPT/HCPCS: 99282

== ENCOUNTER 2019-03-06 10:09 | Emergency (ER) | payer SELFPAY ==
[2019-03-06 10:15] VITALS: BP 127/79
[2019-03-06] MEDS ORDERED: NORMAL SALINE 1000 ML 1,000 ML IV ONE (10:43)
[2019-03-06] MEDS ORDERED: ONDANSETRON HCL INJ/PF 4 MG/2 ML SDV IV ONE (10:43)
[2019-03-06] MEDS ORDERED: FAMOTIDINE INJ/PF 20 MG/2 ML SDV IV ONE (10:44)
--- NOTE | 2019-03-06 10:45 | ER Document Report ---
ED Medical Screen (RME) - General Chief Complaint: Nausea/Vomiting/Diarrhea Stated Complaint: VOMITING Time Seen by Provider: 03/06/19 10:41 Primary Care Provider: YANNA HARDY MD [Primary Care Provider] - Follow up as needed Notes: Patient is a 23-year-old female presents to the emergency department with a chief complaint of nausea, vomiting and diarrhea. Patient states on Tuesday she started to develop body aches with some diarrhea. She states that yesterday she had diarrhea every hour. Patient reports she is also vomited 3 times. Patient states this was green in color. Patient reports a generalized abdominal pain. Patient states she did have a temp of 101.2 at home in which she did take Tylenol for. Patient states she does work at a [employer] patients have had similar symptoms. Patient denies any urinary symptoms. Patient denies of blood in the vomitus or stool. TRAVEL OUTSIDE OF THE [place] IN LAST 30 DAYS: No - Related Data Allergies/Adverse Reactions: Penicillins Allergy (Mild, Verified 03/06/19 10:15) shellfish derived Allergy (Verified 03/06/19 10:15) Past Medical History Neurological Medical History: Reports: Hx Migraine Renal/ Medical History: Denies: Hx Peritoneal Dialysis - Immunizations Hx Diphtheria, Pertussis, Tetanus Vaccination: Yes Physical Exam - Vital signs Vitals: Temp Pulse Resp BP Pulse Ox 97.7 F 84 16 127/79 H 99 03/06/19 10:14 03/06/19 10:14 03/06/19 10:14 03/06/19 10:14 03/06/19 10:14 - Abdominal Inspection: Normal Distension: No distension Bowel sounds: Normal Tenderness: Nontender Organomegaly: No organomegaly Course - Re-evaluation Re-evalutation: 03/06/19 10:45 I have greeted and performed a rapid initial assessment of this patient. A comprehensive ED assessment and evaluation of the patient, analysis of test results and completion of the medical decision making process will be conducted by additional ED providers. - Vital Signs Vital signs: Temp Pulse Resp BP Pulse Ox 97.7 F 84 16 127/79 H 99 03/06/19 10:14 03/06/19 10:14 03/06/19 10:14 03/06/19 10:14 03/06/19 10:14 Doctor's Discharge - Discharge Referrals: YANNA HARDY MD [Primary Care Provider] - Follow up as needed
[2019-03-06 11:41] LABS: ABSOLUTE EOSINOPHILS # (AUTO) 0.4 10^3/uL (0.0-0.6); ABSOLUTE LYMPHOCYTES (AUTO) 1.2 10^3/uL (0.5-4.7); ABSOLUTE MONOCYTES (AUTO) 0.4 10^3/uL (0.1-1.4); ABSOLUTE NEUT (AUTO) 4.8 10^3/uL (1.7-8.2); BASOPHILS % (AUTO) 0.3 % (0-2); EOSINOPHILS % (AUTO) 5.5 % (0-6); HEMOGLOBIN 13.9 g/dL (12.0-15.5); LYMPHOCYTES % (AUTO) 17.4 % (13-45); MEAN CORPUSCULAR HEMOGLOBIN 27.3 pg (27.0-33.4); MEAN CORPUSCULAR HGB CONC 33.9 g/dL (32.0-36.0); MEAN CORPUSCULAR VOLUME 81 fl (80-97); MONOCYTES % (AUTO) 6.4 % (3-13); PLATELET COUNT 300 10^3/uL (150-450); RED BLOOD COUNT 5.08 10^6/uL (3.72-5.28); RED CELL DISTRIBUTION WIDTH 15.1 % (11.5-14.0); SEGMENTED NEUTROPHILS % (AUTO) 70.4 % (42-78); TOTAL CELLS COUNTED % (AUTO) 100 %; WHITE BLOOD COUNT 6.8 10^3/uL (4.0-10.5)
[2019-03-06 11:48] LABS: APPEARANCE,URINE SLIGHTLY-CLOUDY; BILIRUBIN,URINE NEGATIVE (NEGATIVE); COLOR,URINE YELLOW; GLUCOSE, URINE NEGATIVE (NEGATIVE); KETONES,URINE NEGATIVE (NEGATIVE); LEUKOCYTE ESTERASE,URINE NEGATIVE (NEGATIVE); NITRITE,URINE NEGATIVE (NEGATIVE); PROTEIN,URINE NEGATIVE (NEGATIVE); URINE SPECIFIC GRAVITY 1.023; UROBILINOGEN,URINE NEGATIVE mg/dL (<2.0)
[2019-03-06 12:04] LABS: ALBUMIN 4.5 g/dL (3.5-5.0); ALKALINE PHOSPHATASE 93 U/L (38-126); ANION GAP 10 (5-19); ASPARTATE AMINO TRANSFERASE 31 U/L (14-36); BILIRUBIN,DIRECT 0.2 mg/dL (0.0-0.4); BILIRUBIN,TOTAL 0.5 mg/dL (0.2-1.3); BLOOD UREA NITROGEN 9 mg/dL (7-20); CALCIUM 9.5 mg/dL (8.4-10.2); CARBON DIOXIDE 28 mmol/L (22-30); CHLORIDE 103 mmol/L (98-107); GLUCOSE 79 mg/dL (75-110); POTASSIUM 3.5 mmol/L (3.6-5.0); TOTAL PROTEIN 8.6 g/dL (6.3-8.2)
[2019-03-06] MEDS ORDERED: PROMETHAZINE HCL INJ 25 MG/1 ML VIAL IV ONE (12:21)
[2019-03-06] MEDS ORDERED: DICYCLOMINE HCL INJ 20 MG/2 ML AMPULE IM ONE (12:22)
--- NOTE | 2019-03-06 12:24 | ER Document Report ---
ED General - General Chief Complaint: Nausea/Vomiting/Diarrhea Stated Complaint: VOMITING Time Seen by Provider: 03/06/19 10:41 Primary Care Provider: YANNA HARDY MD [Primary Care Provider] - Follow up as needed TRAVEL OUTSIDE OF THE [place] IN LAST 30 DAYS: No - HPI Notes: Patient is a 23-year-old female who presents to the emergency department for evaluation of abdominal pain, nausea, vomiting, diarrhea. Symptoms started on Tuesday. She has had 2 episodes of nonbloody, nonbilious emesis and 5 episodes of diarrhea in the last 24 hours. No blood in her stools, no melena. She had a fever at home as high as 101.2. She was exposed at work to other people with viral gastroenteritis. She is still urinating. She denies any vaginal discharge. Her pain is diffuse and crampy. Nothing seems to make it better or worse. - Related Data Allergies/Adverse Reactions: Penicillins Allergy (Mild, Verified 03/06/19 10:15) shellfish derived Allergy (Verified 03/06/19 10:15) Home Medications: None Past Medical History - General Information source: Patient - Social History Smoking Status: Never Smoker Family History: Reviewed & Not Pertinent, DM, Hypertension Patient has suicidal ideation: No Patient has homicidal ideation: No Neurological Medical History: Reports: Hx Migraine Renal/ Medical History: Denies: Hx Peritoneal Dialysis - Immunizations Hx Diphtheria, Pertussis, Tetanus Vaccination: Yes Review of Systems - Review of Systems Constitutional: See HPI EENT: No symptoms reported Cardiovascular: No symptoms reported Respiratory: No symptoms reported Gastrointestinal: See HPI Genitourinary: No symptoms reported Female Genitourinary: No symptoms reported Musculoskeletal: No symptoms reported Skin: No symptoms reported Neurological/Psychological: No symptoms reported Physical Exam - Vital signs Vitals: Temp Pulse Resp BP Pulse Ox 97.7 F 84 16 127/79 H 99 03/06/19 10:14 03/06/19 10:14 03/06/19 10:14 03/06/19 10:14 03/06/19 10:14 - Notes Notes: Vital signs reviewed, please refer to chart. Head is normocephalic, atraumatic. Pupils equal round, reactive to light. Neck is supple without meningismus. Heart is regular rate and rhythm. Lungs are clear to auscultation bilaterally. Abdomen is soft, diffusely tender without rebound or guarding, normoactive bowel sounds throughout. Extremities without cyanosis, clubbing. Posterior calves are nontender. Peripheral pulses are equal. Skin is warm and dry. Patient is awake, alert, neurological exam is nonfocal. Course - Re-evaluation Re-evalutation: 03/06/19 12:24 Patient presents emergency department for evaluation. Given her history, this patient most likely has viral gastroenteritis. She is given fluids, Zofran, Pepcid without any significant relief in her symptoms. Further Phenergan and Bentyl were ordered. Laboratory investigations are unremarkable. We will send patient home with antiemetics and close follow-up. She is to return to the ED with worsening new concerning symptoms of any sort. 03/06/19 12:59 Patient declined the Bentyl but she tolerated the Phenergan well. I will get and send her home with generic Zofran and close follow-up. - Vital Signs Vital signs: Temp Pulse Resp BP Pulse Ox 97.7 F 84 16 127/79 H 99 03/06/19 10:14 03/06/19 10:14 03/06/19 10:14 03/06/19 10:14 03/06/19 10:14 - Laboratory Result Diagrams: 03/06/19 11:30 03/06/19 11:30 Laboratory results interpreted by me: 03/06/19 03/06/19 11:30 11:30 RDW 15.1 H Potassium 3.5 L Total Protein 8.6 H Discharge - Discharge Clinical Impression: Nausea and vomiting Qualifiers: Vomiting type: unspecified Vomiting Intractability: non-intractable Qualified Code(s): R11.2 - Nausea with vomiting, unspecified Diarrhea Qualifiers: Diarrhea type: presumed infectious Qualified Code(s): R19.7 - Diarrhea, unspecified Condition: Stable Disposition: HOME, SELF-CARE Instructions: Vomiting ([facility]), Diarrhea, Nonspecific ([facility]) Additional Instructions: Stay hydrated with small, frequent sips of fluids. Zofran as needed for nausea. Follow-up with primary care this week. Return to the emergency department with worsening or new concerning symptoms of any sort. Referrals: YANNA HARDY MD [Primary Care Provider] - Follow up as needed
== END 2019-03-06 13:43 | disposition home or self-care (01) ==
LOC: ER 10:09
DX: R11.2 Nausea with vomiting, unspecified (principal); R19.7 Diarrhea, unspecified; R10.84 Generalized abdominal pain; R10.817 Generalized abdominal tenderness; R50.9 Fever, unspecified; Z20.828 Contact with and (suspected) exposure to other viral communicable diseases; Z88.0 Allergy status to penicillin; Z91.013 Allergy to seafood
CPT/HCPCS: 36415; 85025; 81025; 80053; 81001; J2550; J2405; J7030; S0028; 96361; 96374; 96375; 99283

== ENCOUNTER 2019-12-21 09:23 | Emergency (ER) | payer MEDICAID ==
[2019-12-21 10:34] LABS: APPEARANCE,URINE CLEAR; BILIRUBIN,URINE NEGATIVE (NEGATIVE); COLOR,URINE YELLOW; GLUCOSE, URINE NEGATIVE (NEGATIVE); KETONES,URINE NEGATIVE (NEGATIVE); LEUKOCYTE ESTERASE,URINE MODERATE (NEGATIVE); NITRITE,URINE NEGATIVE (NEGATIVE); PROTEIN,URINE NEGATIVE (NEGATIVE); URINE SPECIFIC GRAVITY 1.009; UROBILINOGEN,URINE NEGATIVE mg/dL (<2.0)
--- NOTE | 2019-12-21 12:11 | ER Document Report ---
ED GI/ - General Chief Complaint: Abdominal Pain Stated Complaint: ABDOMINAL PAIN Time Seen by Provider: 12/21/19 11:09 Primary Care Provider: YANNA HARDY MD [Primary Care Provider] - Follow up as needed Notes: 24-year-old woman presents to the emergency department with a complaint of lower abdominal discomfort and urinary urgency, frequency. She states that her symptoms began on Tuesday and have been worsening. Today when she wiped she saw trace of blood which prompted her to come to the emergency department. She denies fever or flank pain. She has had a history of UTI in the past. She states she had a negative test at home. TRAVEL OUTSIDE OF THE [place] IN LAST 30 DAYS: No - Related Data Allergies/Adverse Reactions: Penicillins Allergy (Mild, Verified 03/06/19 10:15) shellfish derived Allergy (Verified 03/06/19 10:15) Past Medical History - Social History Smoking Status: Never Smoker Family History: Reviewed & Not Pertinent, DM, Hypertension Patient has homicidal ideation: No Neurological Medical History: Reports: Hx Migraine Renal/ Medical History: Denies: Hx Peritoneal Dialysis - Immunizations Hx Diphtheria, Pertussis, Tetanus Vaccination: Yes Review of Systems - Review of Systems Notes: Constitutional: Negative for fever. HENT: Negative for sore throat. Eyes: Negative for visual changes. Cardiovascular: Negative for chest pain. Respiratory: Negative for shortness of breath. Gastrointestinal: Negative for abdominal pain, vomiting or diarrhea. Genitourinary: + Dysuria, + frequency Musculoskeletal: Negative for back pain. Skin: Negative for rash. Neurological: Negative for headaches, weakness or numbness. 10 point ROS negative except as marked above and in HPI. Physical Exam - Vital signs Vitals: Temp Pulse Resp BP Pulse Ox 98.4 F 85 16 130/81 H 97 12/21/19 09:27 12/21/19 09:27 12/21/19 09:27 12/21/19 09:27 12/21/19 09:27 - Notes Notes: PHYSICAL EXAMINATION: Physical Exam: General: Well-nourished well-developed 24-year-old female in no acute distress HEENT: NC/AT, pupils equal round and reactive to light, MM moist,nares clear, oropharynx clear, airway patent Neck: supple, no adenopathy, no masses. Good range of motion Lungs: clear, no wheezing, no rales no rhonchi CVS: Regular rate and rhythm no murmur gallop or rub Abdomen: Soft, active, nontender, no masses, no hepatosplenomegaly Ext: No edema, clubbing or cyanosis. Neuro: Alert and responsive, moving all 4 extremities on command, cranial nerves intact, no focal findings Skin: Intact no open lesions, no rash PSYCH: Normal mood, normal affect. Course - Re-evaluation Re-evalutation: 12/21/19 12:07 I reviewed the patient's lab and she has symptoms and findings compatible with urinary tract infection. I discussed this with the patient she has been given a prescription for cephalexin and Pyridium. She will be following up with her primary care doctor as needed. - Vital Signs Vital signs: Temp Pulse Resp BP Pulse Ox 98.4 F 85 16 130/81 H 97 12/21/19 09:32 12/21/19 09:27 12/21/19 09:27 12/21/19 09:27 12/21/19 09:27 - Laboratory Laboratory results interpreted by me: 12/21/19 09:55 Urine Blood LARGE H Ur Leukocyte Esterase MODERATE H 12/21/19 12:07 I have reviewed laboratory data and used this information for the treatment decisions regarding the patient. Discharge - Discharge Clinical Impression: Dysuria Urinary tract infection Qualifiers: Urinary tract infection type: site unspecified Hematuria presence: with hematuria Qualified Code(s): N39.0 - Urinary tract infection, site not specified; R31.9 - Hematuria, unspecified Condition: Good Disposition: HOME, SELF-CARE Instructions: Urinary Tract Infection ([facility]), Cephalexin ([facility]) Additional Instructions: Seen in the emergency department with a diagnosis of urinary tract infection with lower abdominal discomfort. He was given prescriptions for antibiotics and Pyridium. Please take medications as prescribed push fluids and follow-up with your primary care doctor as needed. If your symptoms are worsening or if you have other concerns you may return to the emergency department for further evaluation and treatment HOME CARE INSTRUCTIONS & INFORMATION: Thank you for choosing us for your medical needs. We hope you're satisfied with the care you received. After you leave, you must properly care for your problem and, at the same time, observe its progress. Any condition can change. Some illnesses can change rapidly over hours or days. If your condition worsens, return to the Emergency Department or see your physician promptly. ABOUT YOUR X-RAYS AND EKG'S: If you had an EKG or X-rays taken, they have been read by the Emergency Physician. The X-rays and EKG's will also be read by a Radiologist or Engineering Technical Writer within 24 hours. If discrepancies are noted, you will be notified by telephone. Please be certain the ED has a correct telephone number & address where you can be reached. Also, realize that some fractures or abnormalities do not show up on initial X-rays. If your symptoms continue, see your physician. ABOUT YOUR LABORATORY TEST: If you had laboratory tests, the results have been reviewed by the Emergency Physician. Some test results (for example cultures) may not be available for several days. You will be contacted if any test result shows you need additional treatment. Please be certain the ED has a correct telephone number and address where you can be reached. ABOUT YOUR MEDICATIONS: You will receive instructions on how to take your medicine on the prescription label you receive. Additional information may be provided by the Pharmacy. If you have questions afterwards, call the ED for clarification or further instructions. Some prescribed medications may cause drowsiness. Do not perform tasks such as driving a car or operating machinery without consulting your Pharmacist. If you feel you need a refill of pain me dication, your condition will need re-evaluation. Please do not call for a refill of any medication. ABOUT YOUR SIGNATURE: Signature of this document acknowledges to followin. Understanding that you received emergency treatment and that you may be released before al medical problems are known or treated. Please be certain the ED has a correct phone number & address where you can be reached. 2. Acknowledgement that you will arrange for follow-up care as recommended. 3. Authorization for the Emergency Physician to provide information to your follow-up Physician in order to maximize your care. AT ANY TIME, IF YOUR SYMPTOMS CHANGE SIGNIFICANTLY OR WORSEN OR YOU DEVELOP NEW SYMPTOMS, RETURN TO THE EMERGENCY DEPARTMENT IMMEDIATELY FOR RE-EVALUATION. OUR GOAL IS TO PROVIDE EXCELLENT MEDICAL CARE! WE HOPE THAT WE HAVE MET YOUR EXPECTATIONS DURING YOUR EMERGENCY DEPARTMENT VISIT AND THAT YOU FEEL YOU HAVE RECEIVED EXCELLENT CARE! Prescriptions: Cephalexin Monohydrate [Keflex 500 mg Capsule] 500 mg PO Q8 10 Days capsule Phenazopyridine HCl [Pyridium 100 Mg Tablet] 100 mg PO TID PRN #10 tablet PRN Reason: Bladder Spasms Referrals: YANNA HARDY MD [Primary Care Provider] - Follow up as needed
[2019-12-21 12:26] VITALS: BP 113/68
== END 2019-12-21 12:27 | disposition home or self-care (01) ==
LOC: ER 09:23
DX: N39.0 Urinary tract infection, site not specified (principal); R31.9 Hematuria, unspecified; Z88.0 Allergy status to penicillin; Z91.013 Allergy to seafood
CPT/HCPCS: 81001; 81025; 99284

== ENCOUNTER → 2020-04-15 | Outpatient (CLI) | payer MEDICAID ==
[2020-04-15 14:38] VITALS: BP 109/64
--- NOTE | 2020-04-15 14:38 | ER [facility] ASSESSMENT REPORT ---
Intake - In the Last 14 days Have you traveled outside [place]?: No Have you been in close contact with someone CONFIRMED: No Worked in Healthcare?: Yes - Symptoms Subjective Fever([place] feverish): Yes Chills: Yes Muscule Aches: No Runny Nose: No Sore Throat: Yes Cough (New or worsening chronic cough): Yes Shortness of breath: No Nausea or Vomiting: No Headache: Yes Abdominal Pain: No Diarrhea(3 or more loose stools in last 24 hours): No - Do you have any of the following Chronic lung disease: Asthma or emphysema or COPD: No Cystic Fibrosis: No Diabetes: No High Blood Pressure: No Cardiovascular Disease: No Chronic Kidney Disease: No Chronic Liver Disease: No Chronic blood disorder like Sickle Cell Disease: No Weak immune system due to disease or medication: No Neurologic condition that limits movement: No Developmental delay - Moderate to Severe: No Recent (within past 2 weeks) or current : No Morbid Obesity (>100 pounds over ideal weight): No - Objective Temperature: 97.7 F Pulse Rate: 77 Respiratory Rate: 18 Blood Pressure: 109/64 O2 Sat by Pulse Oximetry: 98 Objective: Given above, testing performed: If Testing Performed: Test Specimen Type Sent to General - General Information source: Patient Notes: Patient presents to the [facility] for screening for the coronavirus. Patient does work in healthcare. Patient states that she has had fever, chills, sore throat cough and headache for the past 4 days. - Related Data Allergies/Adverse Reactions: Penicillins Allergy (Mild, Verified 03/06/19 10:15) shellfish derived Allergy (Verified 03/06/19 10:15) Past Medical History - General Information source: Patient - Social History Smoking Status: Never Smoker Family History: Reviewed & Not Pertinent, DM, Hypertension - Medical History Medical History: Negative Neurological Medical History: Reports: Hx Migraine Renal/ Medical History: Denies: Hx Peritoneal Dialysis Surgical Hx: Negative Physical Exam - Notes Notes: The patient was evaluated during the global Covid 19 pandemic, and that diagnosis was suspected/considered upon their initial presentation. Their evaluation, treatment and testing was consistent with current guidelines for patients who present with complaints or symptoms that may be related to Covid 19. Full physical exam could not be performed due to covid 19 isolation protocols. Constitutional: Nontoxic appearance, no acute distress Eyes: Nonicteric, extraocular movements intact, sclera clear ENT: Posterior pharynx clear without exudates, no tonsillar hypertrophy Cardiovascular: Heart rate and rhythm regular, no JVD Respiratory: Breath sounds clear bilaterally, nonlabored breathing, no use of accessory muscles, no tachypnea Gastrointestinal: Abdomen not distended Muculoskeletal: Moves all extremities well Skin: Normal color Neuro: Awake alert oriented, normal speech Psych: Normal mood and affect Diagnostic Results Laboratory Results: Patient presents with upper respiratory symptoms worrisome for possible Covid 19. Patient does not have emergency worrying symptoms such as difficulty breathing, shortness of breath, chest pain, pressure, confusion or cyanosis. Patient appears suitable for discharge as they are not of an advanced age, do not have any chronic medical conditions such as diabetes, CAD, immune deficiency, chronic lung disease or chronic kidney disease. Patient's vital signs are stable and patient is nontoxic in appearance. Good return precautions have been discussed with patient, patient verbalized understanding and is agreeable with discharge plan of care at this time. Patient Education/Counseling Counseling/Education: Patient was provided with discharge information including: As a person under investigation for Covid 19, the [place] department of Health and Human Services, division of public health advises you to adhere to the following guidance until your test results are reported to you. If your test result is positive, you will receive additional information from your provider and your local health department at that time. Remain at home until you are cleared by the health provider or public health authorities. Keep a log of visitors to your home, notify any visitors to your home of your isolation status. If you plan to move to a new address or leave the [facility], notify the local health department in your [facility]. Call your doctor or seek care if you have an urgent medical need. Before seeking medical care, call ahead to get instructions from the provider before arriving at the medical office clinic or hospital. Notify them that you are being tested for the virus that causes Covid 19 so that arrangements can be made, as necessary, to prevent transmission to others in the healthcare setting. Next, notify the local health department in your county. If a medical emergency arises and you need to call 911, inform the first responders that you are being tested for the virus that causes Covid 19. Next, notify the local health department in your county. [facility]DC Discharge - Discharge Clinical Impression: Encounter for screening laboratory testing for COVID-19 virus Condition: Stable Disposition: Home; Selfcare
[2020-04-15 15:44] LABS: A TYPE INFLUENZA AG NEGATIVE (NEGATIVE); B INFLUENZA AG NEGATIVE (NEGATIVE)
== END ==
LOC: RDC 14:06
PROVIDERS: ATTEND Nurse Practitioner Family
DX: Z20.828 Contact with and (suspected) exposure to other viral communicable diseases (principal)
CPT/HCPCS: 87070; 87880; 87635; 87804; C9803; 87077; 99201; 99211

== ENCOUNTER → 2020-05-21 | Outpatient (CLI) | payer MEDICAID ==
[2020-05-21 14:35] VITALS: BP 115/63
--- NOTE | 2020-05-21 14:35 | ER [facility] ASSESSMENT REPORT ---
Intake - In the Last 14 days Have you traveled outside [place]?: No Have you been in close contact with someone CONFIRMED: No Worked in Healthcare?: Yes - Symptoms Subjective Fever([place] feverish): Yes Chills: Yes Muscule Aches: Yes Runny Nose: No Sore Throat: No Cough (New or worsening chronic cough): No Shortness of breath: No Nausea or Vomiting: No Headache: No Abdominal Pain: No Diarrhea(3 or more loose stools in last 24 hours): No - Do you have any of the following Chronic lung disease: Asthma or emphysema or COPD: No Cystic Fibrosis: No Diabetes: No High Blood Pressure: No Cardiovascular Disease: No Chronic Kidney Disease: No Chronic Liver Disease: No Chronic blood disorder like Sickle Cell Disease: No Weak immune system due to disease or medication: No Neurologic condition that limits movement: No Developmental delay - Moderate to Severe: No Recent (within past 2 weeks) or current : Yes --If current: Trimester: 1st Morbid Obesity (>100 pounds over ideal weight): No - Objective Temperature: 97.9 F Pulse Rate: 90 Respiratory Rate: 15 Blood Pressure: 115/63 O2 Sat by Pulse Oximetry: 100 Objective: Given above, testing performed: flu, strep, covid Disposition: Home; Selfcare General - General Stated Complaint: fever, fatigue Time Seen by Provider: 05/21/20 14:15 Mode of Arrival: Ambulatory Information source: Patient - HPI Notes: 25-year-old female presents to [facility] clinic for COVID-19 testing. 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 Patient recently found out that she is , estimated 5 weeks along. Onset of symptoms 05/13/2020. She is reporting an intermittent fever with T-max 101, chills, myalgia, and fatigue. Denies any runny nose, sore throat, cough or shortness of breath, h eadache, nausea or vomiting, abdominal pain, or diarrhea. - Related Data Allergies/Adverse Reactions: Penicillins Allergy (Mild, Verified 03/06/19 10:15) shellfish derived Allergy (Verified 03/06/19 10:15) Past Medical History - General Information source: Patient - Social History Smoking Status: Never Smoker Family History: Reviewed & Not Pertinent, DM, Hypertension - Past Medical History Cardiac Medical History: Reports: None Pulmonary Medical History: Reports: None EENT Medical History: Reports: None Neurological Medical History: Reports: Hx Migraine Endocrine Medical History: Reports: None Renal/ Medical History: Reports: None. Denies: Hx Peritoneal Dialysis Malignancy Medical History: Reports: None GI Medical History: Reports: None Musculoskeletal Medical History: Reports None Skin Medical History: Reports None Psychiatric Medical History: Reports: None Traumatic Medical History: Reports: None Infectious Medical History: Reports: None Past Surgical History: Reports: None Physical Exam - General General appearance: Appears well, Alert In distress: None Notes: PHYSICAL EXAMINATION: GENERAL: Well-appearing and in no acute distress. HEAD: Atraumatic, normocephalic. EYES: sclera anicteric, conjunctiva are normal. ENT: nares patent. Moist mucous membranes. NECK: Normal range of motion, supple without lymphadenopathy. LUNGS: No increased work of breathing. Lung sounds CTAB and equal. No wheezes rales or rhonchi. HEART: Regular rate and rhythm without murmurs. ABDOMEN: Soft, nontender, normal bowel sounds, no guarding. EXTREMITIES: Normal range of motion, no pitting edema. No cyanosis. NEUROLOGICAL: A&O x 3. Normal speech. PSYCH: Normal mood, normal affect. SKIN: Warm, Dry, normal turgor, no rashes or lesions noted Patient Education/Counseling Counseling/Education: Patient presents with symptoms associated with possible Covid 19 infection. Patient does not have emergency worrying symptoms such as difficulty breathing, shortness of breath, chest pain, pressure, confusion or cyanosis. Patient appears suitable for discharge as vital signs are stable and patient is nontoxic in appearance. Good return precautions have been discussed with patient, patient verbalized understanding and is agreeable with discharge plan of care at this time. Guidance for worsening S/SX: As a person under investigation for Covid 19, the [place] department of Health and Human Services, division of public health advises you to adhere to the following guidance until your test results are reported to you. If your test result is positive, you will receive additional information from your provider and your local health department at that time. Remain at home until you are cleared by the health provider or public health authorities. Keep a log of visitors to your home, notify any visitors to your home of your isolation status. If you plan to move to a new address or leave the county, notify the local health department in your County. Call your doctor or seek care if you have an urgent medical need. Before seeking medical care, call ahead to get instructions from the provider before arriving at the medical office clinic or hospital. Notify them that you are being tested for the virus that causes Covid 19 so that arrangements can be made, as necessary, to prevent transmission to others in the healthcare setting. Next, notify the local health department in your county. If a medical emergency arises and you need to call 911, inform the first responders that you are being tested for the virus that causes Covid 19. Next, notify the local health department in your county. [facility] Discharge - Discharge Clinical Impression: Encounter for screening laboratory testing for COVID-19 virus Condition: Good Disposition: Home; Selfcare
[2020-05-21 15:38] LABS: A TYPE INFLUENZA AG NEGATIVE (NEGATIVE); B INFLUENZA AG NEGATIVE (NEGATIVE)
== END ==
LOC: RDC 13:42
PROVIDERS: ATTEND Registered Nurse
DX: Z03.818 Encounter for observation for suspected exposure to other biological agents ruled out (principal); O26.891 Other specified pregnancy related conditions, first trimester; R51.9 Headache, unspecified; M79.10 Myalgia, unspecified site; Z3A.00 Weeks of gestation of pregnancy not specified; Z88.0 Allergy status to penicillin
CPT/HCPCS: 87070; 87880; 87635; 87077; 87804; 99211 ×2; C9803

== ENCOUNTER 2020-08-03 21:02 | Emergency (ER) | payer MEDICAID ==
--- NOTE | 2020-08-03 21:34 | ER Document Report ---
ED Medical Screen (RME) - General Chief Complaint: Abdominal Pain Stated Complaint: 16 WEEKS/ABDOMINAL PAIN/VAGINAL BLEEDING Time Seen by Provider: 08/03/20 21:26 Primary Care Provider: YANNA HARDY MD [Primary Care Provider] - Follow up as needed Mode of Arrival: Ambulatory Information source: Patient TRAVEL OUTSIDE OF THE [place] IN LAST 30 DAYS: No - HPI Patient complains to provider of: , abdominal cramping, vaginal bleeding Notes: 08/03/20 21:33 Patient here with complaints of being 16 weeks . She is a G2, P1. According to her blood bank history, she has B+ blood type. She reports having an ultrasound a few weeks ago which was unremarkable. Patient states been having some lower abdominal cramping earlier today and then when she got out of the shower she had some vaginal bleeding. She denies any pain currently. No significant bleeding at this time. She denies nausea, vomiting, diarrhea. No dysuria or hematuria. No prior abdominal surgeries. Exam: Nontoxic, no distress. Lungs clear and equal throughout. Heart sounds normal. No focal abdominal tenderness on limited triage abdominal exam. No CVA tenderness. An initial examination was made on the patient as part of the triage process, and it was determined a more comprehensive evaluation was necessary. Initial orders were placed and patient was transferred to another provider in the ED who assumed care and finished evaluation and plan. - Related Data Allergies/Adverse Reactions: Penicillins Allergy (Mild, Verified 03/06/19 10:15) shellfish derived Allergy (Verified 03/06/19 10:15) Past Medical History Neurological Medical History: Reports: Hx Migraine Renal/ Medical History: Denies: Hx Peritoneal Dialysis - Immunizations Hx Diphtheria, Pertussis, Tetanus Vaccination: Yes Physical Exam - Vital signs Vitals: Temp Pulse Resp BP Pulse Ox 98.1 F 92 18 118/71 98 08/03/20 21:11 08/03/20 21:11 08/03/20 21:11 08/03/20 21:11 08/03/20 21:11 Course - Vital Signs Vital signs: Temp Pulse Resp BP Pulse Ox 98.1 F 92 18 118/71 98 08/03/20 21:11 08/03/20 21:11 08/03/20 21:11 08/03/20 21:11 08/03/20 21:11 Doctor's Discharge - Discharge Referrals: YANNA HARDY MD [Primary Care Provider] - Follow up as needed
[2020-08-03 21:52] LABS: HEMATOCRIT 33.8 % (36.0-47.0); HEMOGLOBIN 12.1 g/dL (12.0-15.5); MEAN CORPUSCULAR HEMOGLOBIN 29.1 pg (27.0-33.4); MEAN CORPUSCULAR HGB CONC 35.9 g/dL (32.0-36.0); MEAN CORPUSCULAR VOLUME 81 fl (80-97); PLATELET COUNT 232 10^3/uL (150-450); RED BLOOD COUNT 4.17 10^6/uL (3.72-5.28); RED CELL DISTRIBUTION WIDTH 13.9 % (11.5-14.0); WHITE BLOOD COUNT 7.8 10^3/uL (4.0-10.5)
[2020-08-03 22:16] LABS: ALBUMIN 3.7 g/dL (3.5-5.0); ALKALINE PHOSPHATASE 67 U/L (38-126); ANION GAP 7 (5-19); ASPARTATE AMINO TRANSFERASE 20 U/L (14-36); BILIRUBIN,DIRECT 0.2 mg/dL (0.0-0.4); BILIRUBIN,TOTAL 0.3 mg/dL (0.2-1.3); BLOOD UREA NITROGEN 5 mg/dL (7-20); CALCIUM 9.5 mg/dL (8.4-10.2); CARBON DIOXIDE 25 mmol/L (22-30); CHLORIDE 104 mmol/L (98-107); GLUCOSE 84 mg/dL (75-110); POTASSIUM 3.9 mmol/L (3.6-5.0); TOTAL PROTEIN 6.9 g/dL (6.3-8.2)
--- NOTE | 2020-08-03 22:19 | RADIOLOGY REPORT (SQ) ---
EXAM DESCRIPTION: U/S OB 14+ TA/1 GEST W/DOPPLER RadLex: US FOLLOW UP CLINICAL HISTORY: 25 years Female; 16 weeks preg, cramping, bleeding; TECHNIQUE: Transabdominal obstetrical ultrasound was performed. COMPARISON: None. FINDINGS: Number of fetuses: Single position: Vertex BPD: 16 weeks 1 day HC: 16 weeks 1 day AC: 17 weeks 1 day FL: 16 weeks 1 day EFW: 161 g HR: 144 BPM Anatomy: Within normal limits on this limited survey exam Amniotic fluid: LVP 6.6 x 4.6 cm, adequate Cervix: 4.8 cm, closed Placenta: Anterior. No hematoma. Right ovary: 3.6 cm. Normal flow on Doppler. Left ovary not visualized IMPRESSION: 1. Single viable IUP. No acute findings. 2. EGA 16 weeks 3 days, EDC 01/15/2021
[2020-08-03] MEDS ORDERED: ACETAMINOPHEN 325 MG TABLET PO ONE (22:34)
[2020-08-03 22:40] LABS: ABSOLUTE LYMPHOCYTES# (MANUAL) 1.8 10^3/uL (0.5-4.7); ABSOLUTE MONOCYTES # (MANUAL) 0.6 10^3/uL (0.1-1.4); BASOPHILS % (MANUAL) 0 % (0-2); EOSINOPHILS % (MANUAL) 3 % (0-6); LYMPHOCYTES % (MANUAL) 20 % (13-45); MONOCYTES % (MANUAL) 8 % (3-13); SEGMENTED NEUTROPHILS % (MAN) 66 % (42-78); TOTAL CELLS COUNTED 100
[2020-08-03 22:41] LABS: PLATELET COMMENT ADEQUATE
[2020-08-03 22:43] LABS: ANISOCYTOSIS SLIGHT
[2020-08-03 22:44] LABS: OVALOCYTES SLIGHT
--- NOTE | 2020-08-03 22:44 | ER Document Report ---
ED General - General Chief Complaint: Abdominal Pain Stated Complaint: 16 WEEKS/ABDOMINAL PAIN/VAGINAL BLEEDING Time Seen by Provider: 08/03/20 21:26 Primary Care Provider: YANNA HARDY MD [Primary Care Provider] - Follow up as needed Mode of Arrival: Ambulatory TRAVEL OUTSIDE OF THE [place] IN LAST 30 DAYS: No - HPI Notes: Patient is a G2, P1 female at approximately 16 weeks gestation who presents to the emergency department for evaluation of lower abdominal cramping and vaginal bleeding. She got shower earlier today. She started developing some cramping and had a small amount of blood. She states it looked like "period blood." She has not had any further bleeding since then. She denies any fevers or chills. No nausea or vomiting. She is eating and drinking normally. She has some cramping pain that she currently puts at a 3 out of 5. Nothing seems to make it better or worse. Her first resulted in a full-term healthy child. - Related Data Allergies/Adverse Reactions: Penicillins Allergy (Mild, Verified 03/06/19 10:15) shellfish derived Allergy (Verified 03/06/19 10:15) Home Medications: vitamins Past Medical History - General Information source: Patient - Social History Smoking Status: Never Smoker Family History: Reviewed & Not Pertinent, DM, Hypertension Neurological Medical History: Reports: Hx Migraine Renal/ Medical History: Denies: Hx Peritoneal Dialysis - Immunizations Hx Diphtheria, Pertussis, Tetanus Vaccination: Yes Review of Systems - Review of Systems Constitutional: No symptoms reported EENT: No symptoms reported Cardiovascular: No symptoms reported Respiratory: No symptoms reported Gastrointestinal: No symptoms reported Genitourinary: No symptoms reported Female Genitourinary: See HPI Musculoskeletal: No symptoms reported Skin: No symptoms reported Neurological/Psychological: No symptoms reported Physical Exam - Vital signs Vitals: Temp Pulse Resp BP Pulse Ox 98.1 F 92 18 118/71 98 08/03/20 21:11 08/03/20 21:11 08/03/20 21:11 08/03/20 21:11 08/03/20 21:11 - Notes Notes: Vital signs reviewed, please refer to chart. Head is normocephalic, atraumatic. Pupils equal round, reactive to light. Neck is supple without meningismus. Heart is regular rate and rhythm. Lungs are clear to auscultation bilaterally. Abdomen is gravid, with uterine fundus palpable 4 cm below the umbilicus, nontender, normoactive bowel sounds throughout. Extremities without cyanosis, clubbing. Posterior calves are nontender. Peripheral pulses are equal. Skin is warm and dry. Patient is awake, alert, neurological exam is nonfocal. Course - Re-evaluation Re-evalutation: 08/03/20 22:42 Patient presents to the emergency department for evaluation. She had laboratory investigations and imaging as ordered through triage. I did order Tylenol. Blood bank history reveals that the patient is Rh+, no RhoGam needed. Laboratory investigations are still pending at this time. Ultrasound shows a healthy intrauterine at this time. Awaiting remainder of labs, specifically urinalysis. Patient is notified of findings. We will continue to monitor. - Vital Signs Vital signs: Temp Pulse Resp BP Pulse Ox 98.1 F 92 18 118/71 98 08/03/20 21:11 08/03/20 21:11 08/03/20 21:11 08/03/20 21:11 08/03/20 21:11 - Laboratory Results Result Diagrams: 08/03/20 21:40 08/03/20 21:40 Laboratory Results Interpreted: 08/03/20 08/03/20 21:40 21:40 Hct 33.8 L Sodium 135.6 L BUN 5 L Beta HCG, Quant 98485.00 H Critical Laboratory Results Reviewed: No Critical Results - Radiology Results Radiology Results Interpreted: 08/03/20 22:43 Obstetrics Ultrasound 08/03/20 21:31 IMPRESSION: 1. Single viable IUP. No acute findings. 2. EGA 16 weeks 3 days, EDC 01/15/2021 Critical Radiology Results Reviewed: No Critical Results Discharge - Discharge Clinical Impression: Vaginal bleeding during , Pelvic pain affecting Condition: Stable Disposition: HOME, SELF-CARE Instructions: Bleeding During Early ([facility]) Additional Instructions: Your blood work, urine, and ultrasound failed to reveal any significant abnormality. Rest. Stay well-hydrated. Follow-up with your [employer] this week. Return to the emergency department with worsening or new concerning symptoms of any sort. Referrals: YANNA HARDY MD [Primary Care Provider] - Follow up as needed
[2020-08-03 23:45] LABS: APPEARANCE,URINE CLEAR; BILIRUBIN,URINE NEGATIVE (NEGATIVE); COLOR,URINE YELLOW; GLUCOSE, URINE NEGATIVE (NEGATIVE); KETONES,URINE NEGATIVE (NEGATIVE); LEUKOCYTE ESTERASE,URINE NEGATIVE (NEGATIVE); NITRITE,URINE NEGATIVE (NEGATIVE); PROTEIN,URINE NEGATIVE (NEGATIVE); URINE SPECIFIC GRAVITY 1.012; UROBILINOGEN,URINE NEGATIVE mg/dL (<2.0)
[2020-08-04 00:06] VITALS: BP 117/61
== END 2020-08-04 00:09 | disposition home or self-care (01) ==
LOC: ER 21:02
DX: O26.899 Other specified pregnancy related conditions, unspecified trimester (principal); R10.2 Pelvic and perineal pain; O46.90 Antepartum hemorrhage, unspecified, unspecified trimester; Z79.899 Other long term (current) drug therapy; Z67.20 Type B blood, Rh positive; Z88.0 Allergy status to penicillin; Z91.013 Allergy to seafood; Z3A.00 Weeks of gestation of pregnancy not specified
CPT/HCPCS: 99284; 36415; 84702; 83690; 85025; 80053; 81001; 76805; 93976; J3490